=== PATIENT | male | born 1950 | race American Indian/Alaskan Native ===

== ENCOUNTER 2020-08-10 09:46 | Outpatient (CLI) | payer MEDICARE ==
--- NOTE | 2020-08-10 10:18 | XRay Report ---
STANDING KNEES ONE VIEW INDICATION / CLINICAL INFORMATION: PAIN IN UNSPECIFIED KNEE. COMPARISON: None available. FINDINGS: Advanced degenerative changes seen in the medial and lateral compartments bilaterally Signer Name: Hipolito Nguyen MD FACR Signed: 08/10/2020 10:13 AM Workstation Name: [id number]
== END 2020-08-10 09:47 | disposition home or self-care (01) ==
LOC: XRAY 09:46
PROVIDERS: ATTEND Orthopaedic Surgery
DX: M17.0 Bilateral primary osteoarthritis of knee (principal)
CPT/HCPCS: 73565